=== PATIENT | male | born 1965 | race Caucasian/White ===

== ENCOUNTER 2017-06-24 07:05 | Emergency (ER) | payer BC ==
--- NOTE | 2017-06-24 09:25 | RAD ---
INDICATION: Fall, trauma to back. COMPARISON: There are no prior studies available for comparison. TECHNIQUE: Contiguous axial sections were obtained beginning above the L1 vertebra and continuing through the L5-S1 disc space. Images were reconstructed in the sagittal and coronal planes. FINDINGS: The vertebra are in normal alignment. There is a 2.5 x 3.2 cm hypodense lesion present within the L1 vertebral body. The imaging characteristics would be most consistent with a hemangioma. There is a slightly displaced fracture of the L3 left transverse process. No other acute fractures are seen. There is bilateral spondylolysis at the L5 level which appears chronic. At the L3-L4 level there is a mild broad-based disc bulge and mild hypertrophic changes within the facet joints. There is mild spinal canal narrowing. Neural foramen appear patent on both sides. At the L4-L5 level there is a mild broad-based disc bulge and mild hypertrophic changes within the facet joints. There is mild spinal canal narrowing and mild bilateral neural foraminal narrowing. At the L5-S1 level level there is a mild broad-based disc bulge and mild hypertrophic changes within the facet joints. There is mild lateral recess narrowing and mild bilateral neural foraminal narrowing. IMPRESSION: 1. ACUTE SLIGHTLY DISPLACED FRACTURE OF THE LEFT L3 TRANSVERSE PROCESS. 2. 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 3. MILD LUMBAR SPONDYLOSIS.
--- NOTE | 2017-06-24 09:26 | RAD ---
INDICATION: Fall, to the back. COMPARISON: There are no prior studies available for comparison. TECHNIQUE: A CT scan of the abdomen was performed without intravenous or oral contrast. Contiguous axial sections were obtained from the lung bases through the tops of the iliac crests. Images were reconstructed in the coronal and sagittal planes. FINDINGS: The lung bases are clear. No pleural effusion is present. The liver is mildly enlarged and decreased in attenuation consistent with fatty infiltration. No significant focal abnormality is seen on this noncontrast study. No calcified gallstones are noted. The spleen and pancreas appear to be within normal limits. The kidneys and adrenal glands appear normal in size. No renal calculi or hydronephrosis is seen. The aorta is normal in caliber and there is mild calcific plaque present. No significant enlarged retroperitoneal lymph nodes are seen. The visualized portion of the small and large bowel appear nondistended. The appendix appears to be within normal limits. No free intraperitoneal air or fluid is seen. There is a fracture of the left L3 transverse process which is slightly displaced. IMPRESSION: 1. SLIGHTLY DISPLACED FRACTURE OF THE LEFT L3 TRANSVERSE PROCESS.. 2. MILD HEPATOMEGALY AND HEPATIC STEATOSIS.
--- NOTE | 2017-06-24 12:07 | ED ---
Mikey Nettles Natalie, scribed for Andrew Whittaker MD on 06/24/17 at 0815 . Back Pain - HPI Summary HPI Summary: The pt is a 51 y/o M presenting to the ED c/o back pain s/p mechanical fall yesterday at 15:00. He was loading a four-pathak (600 lbs) on to his truck when it fell on top of him. The pain is rated 5/10. The pain is aggravated by standing, ambulation and sitting. 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 Pt additionally c/o bruising on back, tingling in left hand and foot, normal ambulation, mild numbness in back, and central abd tenderness. Pt denies difficulty breathing, changes in urination, and numbness in legs or saddle area. He also bruised his left middle finger at work last week, which has been bleeding intermittently. - History of Current Complaint Chief Complaint: EDBackInjuryPain Stated Complaint: FALL, BACK PAIN, LEFT FOOT AND HAND PAIN Hx Obtained From: Patient Onset/Duration: Sudden Onset, Lasting Hours - started yesterday s/p fall, Still Present Onset/Duration: Started Hours Ago, Still Present Timing: Lasting Hours Severity Initially: Moderate Severity Currently: Moderate Pain Intensity: 5 Pain Scale Used: 0-10 Numeric Aggravating Symptom(s): Movement, Walking, Other - sitting, deep breaths Alleviating Symptom(s): Rest Associated Signs And Symptoms: Positive: Bruising - to back, Numbness - to low back, Tingling - in left palm and left foot, Abdominal Pain, Other - POSITIVE: normal ambulation; NEGATIVE: difficulty breathing, changes in urination, numbess in legs or saddle area - Allergies/Home Medications Allergies/Adverse Reactions: Allergies Allergy/AdvReac Type Severity Reaction Status Date / Time Meperidine [From Demerol HCl] Allergy Severe GI Upset Verified 06/24/17 07:12 PMH/Surg Hx/FS Hx/Imm Hx Previously Healthy: Yes Opthamlomology History: Denies: Hx Legally Blind EENT History: Denies: Hx Deafness - Immunization History Immunizations Up to Date: Yes Infectious Disease History: No Infectious Disease History: Denies: Traveled Outside the [place] in Last 30 Days - Family History Known Family History: Negative: Cardiac Disease, Hypertension, Diabetes - Social History Alcohol Use: Weekly Alcohol Amount: 6 pack Substance Use Type: Reports: None Smoking Status (MU): Never Smoked Tobacco Review of Systems Negative: Shortness Of Breath Positive: Abdominal Pain Positive: other - normal urination Positive: Bruising - to back Neurological: Other - normal ambulation Positive: Paresthesia - in left palm and foot, Numbness - POSITIVE: in low back ; NEGATIVE: in legs or saddle area All Other Systems Reviewed And Are Negative: Yes Physical Exam - Summary Physical Exam Summary: Appearance: Well-appearing, Well-nourished Skin: Warm Eyes: Normal ENT: Normal Neck: Supple, nontender Respiratory: Clear to auscultation Cardiovascular: Normal, Normal pulses in all four extremities Abdomen: Soft, nontender Bowel: Present Musculoskeletal: Strength/ROM Intact, back tenderness and bruising in left lumbar area Neurological: Normal, A&Ox3, normal strength and sensation in all extremities, Paresthesia in left palm in no dermatomal pattern Psychiatric: Normal Triage Information Reviewed: Yes Vital Signs On Initial Exam: Initial Vitals Temp Pulse Resp BP Pulse Ox 97.7 F 74 16 156/92 96 06/24/17 07:08 06/24/17 07:08 06/24/17 07:08 06/24/17 07:08 06/24/17 07:08 Vital Signs Reviewed: Yes - [place] Coma Scale Coma Scale Total: 15 Diagnostics - Vital Signs Vital Signs Temp Pulse Resp BP Pulse Ox 06/24/17 07:28 97.6 F 80 18 157/93 06/24/17 07:08 97.7 F 74 16 156/92 96 - Laboratory Lab Statement: Any lab studies that have been ordered have been reviewed, and results considered in the medical decision making process. - CT CT Spine/Lumbar CT Interpretation: Positive (See Comments) - 1. Acute slightly displaced fracture of the left L3 transverse process. 2. Chronic bilateral spondylolysis at the L5 level. 3. Mild lumbar spondylosis. ED physician has reviewed this report. CT Interpretation Completed By: Radiologist CT Abd/Pel CT Interpretation: Positive (See Comments) - 1. Slightly displaced fracture of the left L3 transverse process. 2. Mild hepatomegaly and hepatic steatosis. ED physician has reviewed this report. CT Interpretation Completed By: Radiologist Back Pain Course/Dx - Course Assessment/Plan: left L3 transverse proces fracture. able to ambulate normally, neuro intact. I spoke with neurosurgeon who agreed that no surgical intervention warranted at this time, instructed pt and family to fu with orthopedist within a week and to return for worsening or concerning sxs. pt given prescription for pain meds, fam and pt agree to and reyna dc instructions. - Diagnoses Provider Diagnoses: Lumbar transverse process fracture - Provider Notifications Discussed Care Of Patient With: Reynaldo Palomino Time Discussed With Above Provider: 09:55 - I spoke with Dr. Palomino on behalf of the patient having a left L4 transverse process fracture. He confirmed with me that the fracture will require surgery. Discharge - Discharge Plan Condition: Improved Disposition: HOME Prescriptions: oxyCODONE/Acetamin 5/325 MG* [Percocet 5/325 TAB*] 1 tab PO Q6H PRN #12 tab MDD 4 tabs PRN Reason: Pain - Moderate To Severe Polyethylene Glycol 3350* [Miralax*] 17 gm PO DAILY #7 packet Patient Education Materials: Acute Low Back Pain (ED) Forms: *Work Release Referrals: Jim Ortega MD [Primary Care Provider] - Lucian Ochoa MD [Medical Doctor] - More Samuels MD [Medical Doctor] - Additional Instructions: PLEASE MAKE AN APPOINTMENT TO BE SEEN BY AN ORTHOPEDIST WITHIN 1 WEEK PLEASE RETURN IMMEDIATELY TO THE ER IF YOU HAVE ANY WORSENING OR CONCERNING SYMPTOMS PLEASE MAKE AN APPOINTMENT TO BE SEEN BY YOUR PRIMARY CARE DOCTOR WITHIN 1 WEEK The documentation as recorded by the Mikey reza Natalie accurately reflects the service I personally performed and the decisions made by me, Andrew Whittaker MD.
[2017-06-24 12:22] VITALS: BP 166/90
== END 2017-06-24 12:21 | disposition home or self-care (01) ==
LOC: ED 07:05
DX: S32.009A Unspecified fracture of unspecified lumbar vertebra, initial encounter for closed fracture (principal); R10.9 Unspecified abdominal pain; M54.9 Dorsalgia, unspecified; M79.642 Pain in left hand; R20.2 Paresthesia of skin; W19.XXXA Unspecified fall, initial encounter; Y92.9 Unspecified place or not applicable
CPT/HCPCS: 72131; 74150; 99282